=== PATIENT | male | born 1995 | race American Indian/Alaskan Native ===

== ENCOUNTER 2023-09-29 20:28 | Emergency (ER) | payer MEDICAID, OTHER ==
[~2023-09-29] VITALS: Ht 162.6 cm; Wt 61.2 kg
[2023-09-29 21:59] VITALS: BP 131/63; PULSE 102; RESP 18; TEMP 97.8; O2SAT 99
== END 2023-09-29 22:05 | disposition home or self-care (01) ==
LOC: MED 20:28
DX: Z02.89 Encounter for other administrative examinations (principal); V89.2XXA Person injured in unspecified motor-vehicle accident, traffic, initial encounter; Y93.89 Activity, other specified; Y92.410 Unspecified street and highway as the place of occurrence of the external cause; Y99.8 Other external cause status
CPT/HCPCS: 99283